=== PATIENT | female | born 1980 | race Caucasian/White ===

== ENCOUNTER 2023-05-28 11:19 | Emergency (ER) | payer MEDICARE, OTHER ==
[~2023-05-28] VITALS: Ht 162.6 cm; Wt 90.5 kg
[2023-05-28] MEDS ORDERED: VENTOLIN HFA18 GM INH ×2 (11:31→12:35)
[2023-05-28 12:42] VITALS: BP 163/105
== END 2023-05-28 12:42 | disposition home or self-care (01) ==
LOC: ED 11:19
DX: S09.90XA Unspecified injury of head, initial encounter (principal); W19.XXXA Unspecified fall, initial encounter; H91.92 Unspecified hearing loss, left ear; F17.290 Nicotine dependence, other tobacco product, uncomplicated; Z88.0 Allergy status to penicillin; Z79.899 Other long term (current) drug therapy
CPT/HCPCS: 70450; 84703

== ENCOUNTER 2023-07-30 11:34 | Emergency (ER) | payer MEDICARE, OTHER ==
[~2023-07-30] VITALS: Ht 162.6 cm; Wt 92.6 kg
[~2023-07-30 11:34] MED LIST: VENTOLIN HFA18 GM INH
[2023-07-30 12:41] VITALS: BP 163/110
== END 2023-07-30 12:41 | disposition home or self-care (01) ==
LOC: ED 11:34
DX: S42.255A Nondisplaced fracture of greater tuberosity of left humerus, initial encounter for closed fracture (principal); I10 Essential (primary) hypertension; W19.XXXA Unspecified fall, initial encounter; Z88.0 Allergy status to penicillin
CPT/HCPCS: 72040; 73030; 99283-25

== ENCOUNTER 2024-07-04 02:51 | Emergency (ER) | payer MEDICARE, OTHER ==
[~2024-07-04] VITALS: Ht 162.6 cm; Wt 89.6 kg
[2024-07-04] MEDS ORDERED: MULTIVITAMINS 10 ML,FOLIC ACID 1 MG,THIAMINE HCL 100 MG in SODIUM CHLORIDE 0.9% 1,000 ML IV ONE (03:00)
[2024-07-04] MEDS ORDERED: LOSARTAN POTAS100 MG PO (03:01)
[2024-07-04] MEDS ORDERED: IBUPROFEN600 MG PO (03:01)
[2024-07-04] MEDS ORDERED: ESCITALOPRAM OX10 MG PO (03:01)
[2024-07-04] MEDS ORDERED: FOLIC ACID 1 MG/0.2 ML ML ONE (03:05)
[2024-07-04 03:12] LABS: BASOPHILS 0.2 % (0-2); EOSINOPHILS 0.9 % (0-6); HEMOGLOBIN 15.6 g/dL (12.0-18.0); LYMPHOCYTES 29.2 % (24-44); MCH 36.1 (27-36); MCHC 33.9 g/dl (30-36); MCV 106.6 fl (81-99); NEUTROPHILS 62.7 % (39-80); PLATELET COUNT 229 K/uL (140-440); RBC 4.31 M/ul (4.3-5.7); RDW 13.3 (10.5-15.0)
[2024-07-04] MEDS ORDERED: ondansetron HCL 4 MG/2 ML VIAL IV ONE (03:15)
[2024-07-04] MEDS ORDERED: LORazepam 2 MG/ML VIAL IV ONE (03:15)
[2024-07-04 03:35] LABS: BILIRUBIN, URINE NEGATIVE (negative); BLOOD/HGB, URINE NEGATIVE (Negative); KETONE, URINE NEGATIVE (Negative); LEUK ESTERASE, URINE NEGATIVE (negative); NITRITE, URINE NEGATIVE (negative)
[2024-07-04 03:36] LABS: ACETAMINOPHEN 0 ug/mL (10-30); ALBUMIN 3.6 g/dL (3.4-5.0); ALKALINE PHOSPHATASE 90 U/L (46-116); ALT (SGPT) 37 U/L (14-59); ANION GAP 18.2 (7-21); AST (SGOT) 46 U/L (15-37); BILIRUBIN, TOTAL 0.5 ng/dL (0.2-1.0); BUN/CREATININE RATIO 5.79 (6.0-28.6); CALCIUM 8.6 mg/dL (8.5-10.1); CARBON DIOXIDE 23 mmol/L (21-32); CHLORIDE 95 mmol/L (98-107); CREATININE, SERUM 0.69 mg/dL (0.55-1.02); GLOMERULAR FILTRATION RATE,EST 110 mL/min (>60); POTASSIUM 3.2 mmol/L (3.5-5.1); PROTEIN, TOTAL 7.6 g/dL (6.4-8.2); SALICYLATE 4.6 mg/dL (2.8-20.0); TSH, 3RD GENERATION 1.668 uIU/mL (0.358-3.740); UREA NITROGEN 4 mg/dL (7-18)
[2024-07-04 03:37] LABS: ALCOHOL, MEDICAL 336 ng/dL (<3)
[2024-07-04] MEDS ORDERED: POTASSIUM CHLORIDE 10 MEQ TABCR PO ONE (03:45)
[2024-07-04 03:49] LABS: AMPHETAMINES, URINE NEGATIVE (NEGATIVE); BARBITURATES, URINE NEGATIVE (NEGATIVE); BENZODIAZEPINE, URINE NEGATIVE (NEGATIVE); BUPRENORPHINE, URINE NEGATIVE (NEGATIVE); CANNABINOID, URINE NEGATIVE (NEGATIVE); COCAINE, URINE NEGATIVE (NEGATIVE); ECSTASY, URINE NEGATIVE (NEGATIVE); FENTANYL, URINE NEGATIVE (NEGATIVE); METHADONE, URINE NEGATIVE (NEGATIVE); OPIATES, URINE NEGATIVE (NEGATIVE); OXYCODONE, URINE NEGATIVE (NEGATIVE); PHENCYCLIDINE, URINE NEGATIVE (NEGATIVE)
[2024-07-04] MEDS ORDERED: MAGNESIUM OXIDE 400 MG TABLET PO ONE (04:00)
[2024-07-04 04:30] VITALS: BP 99/68
== END 2024-07-04 04:30 | disposition home or self-care (01) ==
LOC: ED 02:51
PROVIDERS: Internal Medicine
DX: S16.1XXA Strain of muscle, fascia and tendon at neck level, initial encounter (principal); X58.XXXA Exposure to other specified factors, initial encounter; F10.129 Alcohol abuse with intoxication, unspecified; G44.209 Tension-type headache, unspecified, not intractable; I10 Essential (primary) hypertension; Z88.0 Allergy status to penicillin; Z79.899 Other long term (current) drug therapy
CPT/HCPCS: 36415; 80053; 80307; 81003; 83735; 84443; 85025; 96365; 96375; 99284-25; A9270; G0480; J2060; J2405; J3411; J7030